=== PATIENT | female | born 1950 | race Two or more races ===

== ENCOUNTER → 2020-05-13 | Day surgery (SDC) | payer OTHER ==
[~2020-05-13] MED LIST: COZAAR100 MG PO; DERMOPLAST PAIN78 GM TOP; FENOFIBRA PO; KETO10TA2 PO; LEVOXYL112 MCG PO; NEURONTIN300 MG PO; PERCOCET 5-3251 EACH PO
== END | disposition home or self-care (01) ==
LOC: ADM 05-07 10:00 → CIR.AMB 05:43
PROVIDERS: ATTEND Surgery
DX: K64.8 Other hemorrhoids (principal); K64.4 Residual hemorrhoidal skin tags; Z20.822 Contact with and (suspected) exposure to COVID-19